=== PATIENT | male | born 1965 | race Caucasian/White ===

== ENCOUNTER 2019-03-08 18:16 | Emergency (ER) | payer BC ==
[2019-03-08] MEDS ORDERED: Oxymetazoline 0.05% Nasal Spray 30 ML Bottle NAS ONE (18:44)
--- NOTE | 2019-03-08 18:56 | EDM.PDOC ---
ED HPI GENERAL MEDICAL PROBLEM - General Chief Complaint: ENT Problem Stated Complaint: BLOODY NOSE/ON BLOOD THINNER Time Seen by Provider: 03/08/19 18:44 Source of Information: Reports: Patient, Family, RN Notes Reviewed History Limitations: Reports: No Limitations - History of Present Illness INITIAL COMMENTS - FREE TEXT/NARRATIVE: 53-year-old gentleman presents to emergency department today complaint of bloody nose, he was recently started on bralinta he has had bloody noses in the past of this when he could not get stopped it is normally from the left side - Related Data Allergies Allergy/AdvReac Type Severity Reaction Status Date / Time amoxicillin Allergy Rash Verified 03/08/19 18:31 Home Meds: Home Meds Famotidine 1 tab PO BID 03/08/19 [History] Metoprolol Succinate [Toprol XL] 1 tab PO DAILY 03/08/19 [History] Ticagrelor [Brilinta] 1 tab PO BID 03/08/19 [History] atorvaSTATin Calcium [Lipitor] 1 tab PO DAILY 03/08/19 [History] Past Medical History Cardiovascular History: Reports: CAD, Stents - Past Surgical History HEENT Surgical History: Reports: Tonsillectomy Cardiovascular Surgical History: Reports: Coronary Artery Stent GI Surgical History: Reports: Appendectomy Social & Family History - Tobacco Use Smoking Status *Q: Never Smoker - Alcohol Use Days Per Week of Alcohol Use: 3 Number of Drinks Per Day: 2 Total Drinks Per Week: 6 - Recreational Drug Use Recreational Drug Use: No ED ROS ENT - Review of Systems Review Of Systems: See Below HEENT: Reports: Nosebleed Respiratory: Reports: No Symptoms Cardiovascular: Reports: No Symptoms ED EXAM, ENT - Physical Exam Exam: See Below Text/Narrative:: Examination of the nares I cannot appreciate any active bleeding there is dried blood around the left near Exam Limited By: No Limitations General Appearance: Alert, WD/WN, No Apparent Distress Mouth/Throat: Normal Inspection, Normal Gums, Normal Lips, Normal Oropharynx, Normal Teeth Respiratory/Chest: No Respiratory Distress Course - Vital Signs Last Recorded V/S: Last Vital Signs Temp 97.5 F 03/08/19 18:30 Pulse 59 L 03/08/19 18:30 Resp 16 03/08/19 18:30 BP 145/92 H 03/08/19 18:30 Pulse Ox 97 08/01/19 18:30 - Orders/Labs/Meds Meds: Medications Discontinued Medications Generic Name Dose Route Start Last Admin Trade Name Rogelio PRN Reason Stop Dose Admin Oxymetazoline HCl 2 ml 03/08/19 18:44 03/08/19 19:01 Nasal Decongestant [place] JAMIL 03/08/19 18:45 2 spray ONETIME ONE Administration Oxymetazoline HCl Confirm 03/08/19 18:59 Nasal Decongestant [place] Administered 03/08/19 19:00 Dose 30 ml .ROUTE .STK-MED ONE Departure - Departure Time of Disposition: 19:23 Disposition: Home, Self-Care 01 Condition: Fair Clinical Impression: Epistaxis - Discharge Information Referrals: PCP,None [Primary Care Provider] - Forms: ED Department Discharge Additional Instructions: Continue to use the Afrin and nose clamp as needed, Please followup with your primary care provider in 3-5 days if not better, please call return to the emergency department with worsening of symptoms. Consider consultation with ear nose and throat if needed - Assessment/Plan Plan: Assessment Acuity = acute Site and laterality = epistaxis Etiology = possibly related to new medications Bralinta Manifestations = none Location of injury = Home Lab values = none Plan After placing the nose clamp for 10 minutes with blowing his nose no bleeding was appreciated did do an additional spray of Afrin as needed, have him follow- up with his primary care 3-5 days if no improvement possible referral to ENT This note was dictated using [employer] voice recognition software please call with any questions on syntax or grammar.
[2019-03-08] MEDS ORDERED: Oxymetazoline 0.05% Nasal Spray 30 ML Bottle ONE (18:59)
== END 2019-03-08 19:29 | disposition home or self-care (01) ==
LOC: JP.ED 18:16
DX: R04.0 Epistaxis (principal); Z88.1 Allergy status to other antibiotic agents; Z79.899 Other long term (current) drug therapy
CPT/HCPCS: 99282; A9270